=== PATIENT | male | born 1990 | race Caucasian/White ===

== ENCOUNTER 2022-07-16 10:51 | Emergency (ER) | payer SELFPAY ==
[~2022-07-16] VITALS: Ht 170.2 cm; Wt 57.9 kg
[~2022-07-16 10:51] MED LIST: CYCL10TA3 PO; TRAM50TA2 PO
[2022-07-16 11:19] VITALS: BP 129/79
[2022-07-16] MEDS ORDERED: cefTRIAXone SOD 1,000 MG VL IM ONE (11:45)
[2022-07-16] MEDS ORDERED: IBUPROFEN 600 MG TAB PO ONE (11:45)
[2022-07-16] MEDS ORDERED: CLIN300C8 PO (11:51)
[2022-07-16] MEDS ORDERED: IBUP600T27 PO (11:51)
== END 2022-07-16 12:30 | disposition home or self-care (01) ==
LOC: ER 11:00
DX: K04.7 Periapical abscess without sinus (principal)
CPT/HCPCS: 96372; 99283; J0696